=== PATIENT | female | born 1970 | race Caucasian/White ===

== ENCOUNTER → 2016-07-24 | Outpatient (CLI) | payer BC ==
[~2016-07-24] MED LIST: ALBUAER2 INH; B-CO1CAP17 PO; CETI10TA84 PO; CHOL1000 PO; COEN1CAP28 PO; FERR324T PO; MISCCAP80 PO; MULT-506 PO; NUTRCAP PO; OREGCAP PO; PROAIR INH; VITATAB19 PO
--- NOTE | 2016-07-24 11:03 | DIAGNOSTIC IMAGING REPORT ---
CHEST 2 VIEWS ROUTINE CLINICAL HISTORY: R05 [id number] Shortness of [id number] dyspnea COMPARISON STUDY: 10/03/2014 FINDINGS: The bones soft tissues and hemidiaphragms are normal. The cardiomediastinal silhouette is normal. The lungs are clear. The pulmonary vasculature is normal. IMPRESSION: Negative chest. Electronically signed by: Maxwell Alonso M.D. 07/24/2016 11:01 AM
[2016-07-24 11:16] LABS: BASO ABS # 0.06 K/uL (0-0.2); COMPLETE YES; EOS % 6.3 %; HEMATOCRIT 38.7 % (37-47); IG% 0.2 %; LYMPH % 23.5 %; LYMPH ABS # 1.43 K/uL (1.2-3.4); MEAN CELL VOLUME 91.7 fL (80-100); MEAN CORPUSCULAR HEMOGLOBIN 30.1 pg (25-34); MEAN CORPUSCULAR HGB CONC 32.8 g/dl (32-36); MONO % 5.3 %; NEUT % 63.7 %; PLATELET COUNT 239 K/uL (130-400); RED BLOOD COUNT 4.22 M/uL (4.2-5.4); WHITE BLOOD COUNT 6.08 K/uL (4.8-10.8)
[2016-07-24 11:42] LABS: BLOOD UREA NITROGEN 8 mg/dl (7-18); BUN/CREATININE RATIO 8.4 (10-20); CALCIUM 9.2 mg/dl (8.5-10.1); CARBON DIOXIDE 26 mmol/L (21-32); CHLORIDE 107 mmol/L (98-107); GLUCOSE 96 mg/dl (70-99); SODIUM 141 mmol/L (136-145)
[2016-07-27 12:35] LABS: BORDETELLA PERTUSSIS SOURCE Swab
== END | disposition home or self-care (01) ==
LOC: C.RAD1850 10:16
PROVIDERS: ATTEND Nurse Practitioner Family
DX: R06.02 Shortness of breath (principal); R05 Cough

== ENCOUNTER 2016-11-03 22:05 | Emergency (ER) | payer BC, OTHER ==
[~2016-11-03] VITALS: Ht 170.2 cm; Wt 68.6 kg
[~2016-11-03 22:05] MED LIST changes: -B-CO1CAP17 PO; -CHOL1000 PO; -NUTRCAP PO; -PROAIR INH
[2016-11-03 22:13] VITALS: TEMP 37; Ht 170.2 cm; Wt 68.6 kg
[2016-11-03] MEDS ORDERED: PROAIR INH (22:33)
[2016-11-03] MEDS ORDERED: CHOL1000 PO (22:34)
[2016-11-03] MEDS ORDERED: B-CO1CAP17 PO (22:36)
[2016-11-03] MEDS ORDERED: NUTRCAP PO (22:38)
--- NOTE | 2016-11-03 22:52 | DIAGNOSTIC IMAGING REPORT ---
RIGHT HAND MIN 3 VIEWS ROUTINE CLINICAL HISTORY: Right hand pain. Trauma. COMPARISON: None. DISCUSSION: No acute fractures or dislocations are visualized. IMPRESSION: No fractures or dislocations identified. Electronically signed by: Timmy Victor M.D. 11/03/2016 10:50 PM Dictated Date/Time: 11/03/2016 10:49 PM
--- NOTE | 2016-11-03 23:09 | EMERGENCY ROOM VISIT NOTE ---
ED Visit Note First contact with patient: 22:18 CHIEF COMPLAINT: Right hand injury this evening HISTORY OF PRESENT ILLNESS: Patient is a [id number] 45-year-old white female who presents to emergency department for evaluation of right hand pain. She was boxing for exercise at the gym this evening. She states that after taking her clothes off she noted pain and swelling of the dorsum of her right hand, particularly in the proximal fourth and fifth metacarpal regions. She took ibuprofen. Rates her pain a 4/10. She denies any specific injury that she noted while working out, just noted the discomfort afterwards when she took off her gloves. There was no audible cracking sound at the time of the injury. REVIEW OF SYSTEMS: Review of systems as per HPI. All other systems reviewed were negative. At least 6 systems reviewed. PMH: Electronic medical records are reviewed and summarized as above/below. See Problem List. SOCIAL HISTORY: Patient lives at home. Nonsmoker. PHYSICAL EXAM: Vital Signs: Reviewed Nurse's notes. CONSTITUTIONAL: Patient is a pleasant 45-year-old white female who is awake and alert and in no acute distress. MUSCULOSKELETAL: Examination of the patient's hands show slight dorsal soft tissue swelling. She is tender over the proximal fourth and fifth metacarpal region. No pain into the carpals or into the distal radius. She is pain with wrist extension. Pronation and supination are full. The skin is intact. Flexion and extension of the fingers is full and strong. Right upper extremity is neurovascularly intact. EMERGENCY DEPARTMENT COURSE: An x-ray of the right hand did not demonstrate any fractures or dislocation. Patient was wrapped with Kiran wrap. Differential diagnosis includes fracture, sprain, contusion, among others. Problem List Medical Problems: (1) Asthma Status: Chronic (2) Contusion of lower leg Status: Resolved (3) Leg pain, left Status: Resolved Current/Historical Medications Scheduled Cholecalciferol (Vitamin D3), 5,000 UNITS PO DAILY Multivitamin (Multivitamin), 1 TAB PO AMPM Nutritional Supplements (Bio-Immunex), 1 CAP PO DAILY Probiotic Product (Probiotic), 1 CAP PO 2XWK Vitamin B Cmplx/Vitc/Folic Ac (Nephrocaps), 1 CAP PO DAILY Scheduled PRN Cetirizine (Zyrtec), 10 MG PO DAILY PRN for ALLERGIC REACTION [Proair], 2 PUFFS INH Q4H PRN for Shortness of Breath Allergies Coded Allergies: Cat Dander (Verified Allergy, Intermediate, ., 04/08/09) Dust Mite Extract (Verified Allergy, Intermediate, ., 08/24/09) POLLEN (Verified Allergy, Intermediate, ., 04/08/09) Clarithromycin (Verified Allergy, Unknown, fevers, 11/03/16) Vital Signs Date Time Temp Pulse Resp B/P Pulse Ox O2 Delivery O2 Flow Rate FiO2 11/03/16 23:25 59 18 118/78 97 11/03/16 22:13 37.0 69 18 129/84 100 Room Air Departure Information Impression Primary Impression: Sprain of right hand Referrals Ronel Hale DO (PCP) Patient Instructions My [facility] Additional Instructions Ibuprofen(Motrin, Advil) may be used for fever or pain. Use 600mg every six hours as needed. Take with food. Avoid using more than 2400mg in a 24 hour period. Do not use 2400mg per day for more than three consecutive days without physician direction. Prolonged inappropriate use can lead to stomach upset or ulcers. This medication can be taken if you need to drive, work, or perform activities which may be dangerous when taking narcotic pain medication. (AND/OR) Acetaminophen(Tylenol) may be used for fever or pain. Use 1000mg every six hours as needed. Avoid using more than 3000mg in a 24 hour period. This medication can be taken if you need to drive, work, or perform activities which may be dangerous when taking narcotic pain medication. Ice compresses for 20 minutes at a time four times daily for 2-3 days. Use the Kiran wrap as instructed. Rest and elevate your injury. Continue current medications. Return to the ER immediately for any numbness, tingling, severe pain, extreme swelling in the extremity or as needed. Followup with your family doctor or orthopedic surgery if no improvement in 5-7 days.
[2016-11-03 23:25] VITALS: BP 118/78; PULSE 59; O2SAT 97
== END 2016-11-03 23:26 | disposition home or self-care (01) ==
LOC: C.EDB 22:07 → C.EDC 23:26
DX: S63.91XA Sprain of unspecified part of right wrist and hand, initial encounter (principal); X58.XXXA Exposure to other specified factors, initial encounter; Y93.71 Activity, boxing; J45.909 Unspecified asthma, uncomplicated; Z87.828 Personal history of other (healed) physical injury and trauma; Z79.899 Other long term (current) drug therapy; Z88.8 Allergy status to other drugs, medicaments and biological substances; Z91.09 Other allergy status, other than to drugs and biological substances

== ENCOUNTER 2017-03-31 11:51 | Emergency (ER) | payer BC ==
[~2017-03-31] VITALS: Ht 172.7 cm; Wt 68.3 kg
[~2017-03-31 11:51] MED LIST changes: -ALBUAER2 INH; +B-CO1CAP17 PO; +CHOL1000 PO; -COEN1CAP28 PO; -FERR324T PO; +NUTRCAP PO; -OREGCAP PO; +PROAIR INH; -VITATAB19 PO
[2017-03-31 11:53] VITALS: BP 144/85; PULSE 61; TEMP 36.7; O2SAT 100; Ht 172.7 cm; Wt 68.3 kg
--- NOTE | 2017-03-31 12:36 | EMERGENCY ROOM VISIT NOTE ---
History First contact with patient: 12:20 Chief Complaint: HEAD INJURY (MINOR) Stated Complaint: HEAD TRAUMA/ROB, LIGHT & SOUND SENSITIVITY History of Present Illness The patient is a 46 year old female who presents to the Emergency Room via private vehicle accompanied by male with complaints of "head injury". The patient states that she was taking her son to a local urgent care when she accidentally struck her head off the car door while opening it. She states this occurred this past Thursday, and struck her on the forehead. She denies loss of consciousness but did fall to the ground. She states that she developed a headache the following day, and now has worsened. She states she has light and sound sensitivity. She denies any nausea, vomiting or dizziness. She rates the headache as a 4-6/10. She notes that nothing makes it better. Review of Systems A complete 6-point Review of Systems was discussed with the patient, with pertinent positives and negatives listed in the History of Present Illness. All remaining Review of Systems questions can be considered negative unless otherwise specified. Past Medical/Surgical History Medical Problems: (1) Asthma (2) Contusion of lower leg (3) Leg pain, left Family History FH: HTN (hypertension) FH: diabetes mellitus FH: heart disease Social History Smoking Status: Never Smoker Alcohol Use: occasionally Marital Status: Housing Status: lives with family Occupation Status: employed Current/Historical Medications Scheduled Cetirizine (Zyrtec), 10 MG PO DAILY Cholecalciferol (Vitamin D3), 5,000 UNITS PO DAILY Multivitamin (Multivitamin), 1 TAB PO AMPM Nutritional Supplements (Bio-Immunex), 1 CAP PO DAILY Probiotic Product (Probiotic), 1 CAP PO 2XWK Vitamin B Cmplx/Vitc/Folic Ac (Nephrocaps), 1 CAP PO DAILY Scheduled PRN [Proair], 2 PUFFS INH Q4H PRN for Shortness of Breath Physical Exam Vital Signs Date Time Temp Pulse Resp B/P (MAP) Pulse Ox O2 Delivery O2 Flow Rate FiO2 03/31/17 11:53 36.7 61 18 144/85 100 Room Air Physical Exam VITAL SIGNS - Vital signs and nursing notes were reviewed. Stable. GENERAL -46-year-old female appearing her stated age. Communicates well with provider and answers questions appropriately. SKIN - Gross examination of the entire body surface demonstrates no lacerations to the body surface or head. HEAD - Normocephalic, Atraumatic. No Majano's Sign or Raccoon's Eyes. No depressed skull fractures palpable. EYES - PERRL with EOMI bilaterally. Without subconjunctival hemorrhage. Palpebral conjunctiva pink and moist with no injection. EARS - No deformities of external structures noted on gross examination bilaterally. No hemotympanum present. No tympanic perforation noted. Handle of malleus, umbo, cone of light, pars tensa/flaccid all easily visualized. NOSE - Midline and without cyanosis. No epistaxis or clear watery discharge noted. Septum midline without deviation. No septal hematoma noted. No overlying ecchymosis noted. MOUTH/OROPHARYNX - Without perioral cyanosis. Tongue midline with equal elevation of palate bilaterally. No blood noted in the oropharynx. No tonsillar hypertrophy, erythema, or exudates noted. No dental fractures noted. NECK -no tenderness to palpation over the cervical spinous processes. No cervical paraspinal muscle tenderness noted. LUNGS - Chest wall symmetric without accessory muscle use, intercostals retractions, or central cyanosis. Normal vesicular breath sounds CTA B/L. No wheezes, rales, or rhonchi appreciated. CARDIAC - RRR with S1/S2. No murmur, rubs, or gallops appreciated. EXTREMITIES - No gross deformities noted of the extremities. FROM with no tremors, fasciculations, or clonus noted on PROM throughout. +5/5 strength noted in UE/LE bilaterally. NEUROLOGIC - Cranial nerves II through XII grossly intact. Sensory intact to light touch throughout. Patellar reflexes +2/4. PSYCH - A&Ox3 and cooperates fully with examiner. Pt is very pleasant and interacts well with examiner. Medical Decision & Procedures Medical Decision Patient was seen and evaluated as above. She has a headache, light sensitivity , and noise sensitivity following head injury. There is no loss of consciousness. Her physical examination is unremarkable for acute process. I suspect concussion. Benefits versus risk of CT scan of the head was discussed with the patient, and the decision was made to not scan. She is to return with worsening symptoms of which she was fully educated upon. She was educated upon management of her symptoms, and is to follow-up with the family doctor. A note has been written for her work. She was educated upon worrisome symptoms which to return, had questions by distress, and was discharged home in good condition. In the evaluation and treatment of this patient, the following differential diagnoses were considered: Concussion, Contrecoup Injury, Brain Tumor, Depression, Encephalitis, Hypothyroidism, Meningitis, CVA, TIA, Migraine, Cluster Headache, Intracranial Abnormality, Intracranial Hemorrhage, Subdural Hematoma, Subarachnoid Hemorrhage, Hydrocephalus. Impression Primary Impression: Closed head injury Additional Impression: Concussion Departure Information Dispostion Home / Self-Care Condition GOOD Referrals No Doctor, Assigned (PCP) Patient Instructions ED Concussion, [facility] Additional Instructions You have been treated in the Emergency Department for a Closed Head Injury. For pain control, you can use the following [id number] medicines: - Regular strength (325mg/tab) Tylenol (acetaminophen) 2 tabs every 4-6 hours as needed. Do not exceed 12 tablets in a 24 hour period. Avoid taking more than 3 grams (3000 mg) of Tylenol per day. This includes any other sources of acetaminophen you may take on a regular basis. - Regular strength (200 mg/tab) Advil (ibuprofen) 1-2 tabs every 4-6 hours as needed. Do not exceed a dose of 3200 mg per day. You should relax in a quiet, dark place for the rest of the day. Avoid any possible triggers including: cigarette smoke, caffeine, nicotine, chocolate, wine, beer, loud noises or music, or bright lights. You should schedule a follow-up appointment in 2-3 days with your Primary Care Provider or established Neurologist for further evaluation and treatment of your Headache. Return to the Emergency Department if your current symptoms worsen despite treatment course outlined above, or if you develop any of the following symptoms : intractable pain despite aforementioned treatment course, visual disturbances , loss of vision, unilateral weakness or facial drooping, slurring of speech, loss of coordination, or loss of consciousness. Problem Qualifiers
== END 2017-03-31 12:43 | disposition home or self-care (01) ==
LOC: C.EDB 11:53 → C.EDD 12:43
DX: S06.0X0A Concussion without loss of consciousness, initial encounter (principal); W22.8XXA Striking against or struck by other objects, initial encounter; Y92.89 Other specified places as the place of occurrence of the external cause; J45.909 Unspecified asthma, uncomplicated; Z82.49 Family history of ischemic heart disease and other diseases of the circulatory system; Z83.3 Family history of diabetes mellitus; Z79.899 Other long term (current) drug therapy

== ENCOUNTER → 2017-06-19 | Outpatient (CLI) | payer BC | END | disposition home or self-care (01) | LOC: C.LAB 09:54 | PROVIDERS: ATTEND Nutritionist | DX: R53.83 Other fatigue (principal) ==

== ENCOUNTER → 2017-08-28 | Outpatient (CLI) | payer BC, OTHER ==
--- NOTE | 2017-08-31 15:18 | MAMMOGRAPHY REPORT ---
BILATERAL DIGITAL SCREENING MAMMOGRAM TOMOSYNTHESIS WITH CAD: 08/28/2017 TECHNIQUE: Breast tomosynthesis in addition to standard 2D mammography was performed. Current study was also evaluated with a Computer Aided Detection (CAD) system. COMPARISON: Comparison is made to exams dated: 08/01/2016 mammogram, 07/31/2015 mammogram, 07/28/2014 ma mmogram, 07/22/2013 mammogram, 07/21/2012 mammogram, and 06/02/2011 mammogram - [facility]. BREAST COMPOSITION: There are scattered areas of fibroglandular density in both breasts. FINDINGS: No suspicious masses, calcifications, or areas of architectural distortion are noted in ei ther breast. There has been no significant interval change compared to prior exams. IMPRESSION: ACR BI-RADS CATEGORY 1: NEGATIVE There is no mammographic evidence of malignancy. A 1 year screening mammogram is recommended. The pa tient will receive written notification of the results. Approximately 10% of breast cancers are not detected with mammography. A negative mammographic report should not delay biopsy if a clinically suggestive mass is present. Nely Maldonado M.D. ah/:08/28/2017 15:59:14 Construction Area Manager: Nicolette BONILLA(R)(M), [facility] letter sent: Normal 1/2 BI-RADS Code: ACR BI-RADS Category 1: Negative
== END | disposition home or self-care (01) ==
LOC: C.MAMM 15:39
PROVIDERS: ATTEND Obstetrics & Gynecology
DX: Z12.31 Encounter for screening mammogram for malignant neoplasm of breast (principal)

== ENCOUNTER → 2017-10-28 | Outpatient (CLI) | payer OTHER | END | disposition home or self-care (01) | LOC: C.PAPS 12:57 | PROVIDERS: ATTEND Obstetrics & Gynecology | DX: Z12.4 Encounter for screening for malignant neoplasm of cervix (principal) ==